=== PATIENT | female | born 1965 | race Caucasian/White ===

== ENCOUNTER 2018-01-11 13:41 | Emergency (ER) | payer OTHER ==
[~2018-01-11] VITALS: Ht 152.4 cm; Wt 63.6 kg
[~2018-01-11 13:41] MED LIST: ASPI-556 PO; LISI-661 PO; METF-960 PO
[2018-01-11 14:03] LABS: GLUCOSE,POINT OF CARE 384 MG/DL (70-110)
[2018-01-11] MEDS ORDERED: GLIM4 PO (14:04)
[2018-01-11] MEDS ORDERED: PENI500T2 PO (14:04)
[2018-01-11] MEDS ORDERED: PROZ10 PO (14:04)
[2018-01-11] MEDS ORDERED: SIMV40TA5 PO (14:04)
[2018-01-11] MEDS ORDERED: D-ME473S53 PO (14:04)
[2018-01-11 15:25] LABS: BASOPHILS % (AUTO) 1.1 % (0.0-2.0); EOSINOPHILS % (AUTO) 2.8 % (1.0-6.0); HEMATOCRIT 37.6 % (36-46); HEMOGLOBIN 12.7 g/dL (12.0-16.0); LYMPHOCYTES # (AUTO) 2.6 K/uL (1.0-4.8); LYMPHOCYTES % (AUTO) 38.2 % (22.0-44.0); MEAN CORPUSCULAR HEMOGLOBIN 31.5 pg (26.0-34.0); MEAN CORPUSCULAR HGB CONC 33.8 G/dL (31.0-37.0); MEAN CORPUSCULAR VOLUME 93 fL (80-100); MONOCYTES # (AUTO) 0.5 K/uL (0.1-1.0); MONOCYTES % (AUTO) 6.9 % (2.0-9.0); NEUTROPHILS # (AUTO) 3.5 K/uL (1.8-7.7); PLATELET COUNT (AUTO) 338 K/uL (150-450); RED BLOOD CELL COUNT(AUTO) 4.03 MIL/uL (4.00-5.20); RED CELL DISTRIBUTION WIDTH 12.3 % (11.5-14.5)
[2018-01-11] MEDS: MethylPREDNISolone SOD SUCC 125 MG/2 ML VIAL IVP ONE (15:36)
[2018-01-11 15:50] LABS: ANION GAP 8 mmol/L (8-16); CALCIUM, TOTAL 9.5 mg/dL (8.8-10.5); CARBON DIOXIDE 29 mmol/L (22-29); CHLORIDE 100 mmol/L (98-107); CREATININE 0.96 mg/dL (0.60-1.30); GLOMERULAR FILTR. RATE CALC > 60 mL/min (>60); GLUCOSE,RANDOM 287 mg/dL (70-110); POTASSIUM 4.1 mmol/L (3.5-5.1); SODIUM SERUM 137 mmol/L (136-145); UREA NITROGEN, BLOOD 19 mg/dL (7-18)
[2018-01-11 15:55] LABS: ALANINE AMINOTRANSFERASE 23 U/L (12-78); ALKALINE PHOSPHATASE 151 U/L (46-116); ASPARTATE AMINOTRANSFERASE 14 U/L (15-37); BILIRUBIN,TOTAL 0.3 mg/dL (0.1-1.0); TOTAL PROTEIN, SERUM 7.2 g/dL (6.4-8.2)
[2018-01-11 16:03] VITALS: BP 157/100
[2018-01-11] MEDS: ALBUTEROL SULFATE 2.5 MG/0.5 ML NEB SOLUTION NEB ONE (16:04)
[2018-01-11] MEDS: IPRATROPIUM BROMIDE 0.5 MG/2.5 ML NEB SOLUTION NEB ONE (16:04)
== END 2018-01-11 16:46 | disposition home or self-care (01) ==
LOC: EMS 13:41
DX: J44.1 Chronic obstructive pulmonary disease with (acute) exacerbation (principal); F17.210 Nicotine dependence, cigarettes, uncomplicated; E11.9 Type 2 diabetes mellitus without complications; I10 Essential (primary) hypertension; Z79.82 Long term (current) use of aspirin; Z79.899 Other long term (current) drug therapy; Z79.84 Long term (current) use of oral hypoglycemic drugs
CPT/HCPCS: 36415; 71046; 80053; 82962; 84484; 85025; 93005; 94640; 96374; 99285; 99406; J2930

== ENCOUNTER 2018-01-24 21:57 | Emergency (ER) | payer OTHER ==
[~2018-01-24] VITALS: Ht 152.4 cm; Wt 61.4 kg
[~2018-01-24 21:57] MED LIST changes: +D-ME473S53 PO; +GLIM4 PO; +PENI500T2 PO; +PROZ10 PO; +SIMV40TA5 PO
[2018-01-24 22:19] LABS: GLUCOSE,POINT OF CARE 421 MG/DL (70-110)
[2018-01-24 22:50] LABS: BASOPHILS % (AUTO) 1.3 % (0.0-2.0); EOSINOPHILS % (AUTO) 3.5 % (1.0-6.0); HEMATOCRIT 36.8 % (36-46); HEMOGLOBIN 12.5 g/dL (12.0-16.0); LYMPHOCYTES # (AUTO) 1.7 K/uL (1.0-4.8); LYMPHOCYTES % (AUTO) 22.2 % (22.0-44.0); MEAN CORPUSCULAR HEMOGLOBIN 31.5 pg (26.0-34.0); MEAN CORPUSCULAR VOLUME 93 fL (80-100); MONOCYTES # (AUTO) 0.4 K/uL (0.1-1.0); MONOCYTES % (AUTO) 4.7 % (2.0-9.0); NEUTROPHILS # (AUTO) 5.3 K/uL (1.8-7.7); NEUTROPHILS % (AUTO) 68.3 % (40.0-70.0); PLATELET COUNT (AUTO) 307 K/uL (150-450); RED BLOOD CELL COUNT(AUTO) 3.98 MIL/uL (4.00-5.20); RED CELL DISTRIBUTION WIDTH 12.5 % (11.5-14.5)
[2018-01-24] MEDS ORDERED: IPRATROPIUM BROMIDE 0.5 MG/2.5 ML NEB SOLUTION NEB ONE (23:00)
[2018-01-24] MEDS ORDERED: ALBUTEROL SULFATE 2.5 MG/0.5 ML NEB SOLUTION NEB ONE (23:00)
[2018-01-24] MEDS ORDERED: SODIUM CHLORIDE 0.9% 1,000 ML IV ONE (23:00)
[2018-01-24 23:06] LABS: ALBUMIN 3.2 g/dL (3.4-5.0); BILIRUBIN,TOTAL 0.2 mg/dL (0.1-1.0); CALCIUM, TOTAL 8.1 mg/dL (8.8-10.5); CREATININE 1.18 mg/dL (0.60-1.30); POTASSIUM 3.9 mmol/L (3.5-5.1)
[2018-01-25 00:10] VITALS: BP 125/105
[2018-01-25] MEDS ORDERED: BENZONATATE 100 MG CAPSULE PO ONE (00:15)
== END 2018-01-25 00:26 | disposition home or self-care (01) ==
LOC: EMS 21:58
DX: J40 Bronchitis, not specified as acute or chronic (principal); E11.9 Type 2 diabetes mellitus without complications; I10 Essential (primary) hypertension; Z79.82 Long term (current) use of aspirin; Z79.899 Other long term (current) drug therapy; Z79.84 Long term (current) use of oral hypoglycemic drugs
CPT/HCPCS: 36415; 71045; 80053; 82948; 82962; 83880; 84484; 85025; 93005; 94640; 99285; J7030

== ENCOUNTER 2018-06-12 14:27 | Emergency (ER) | payer OTHER ==
[~2018-06-12] VITALS: Ht 152.4 cm; Wt 59.1 kg
[~2018-06-12 14:27] MED LIST changes: -D-ME473S53 PO; -PENI500T2 PO; -PROZ10 PO
[2018-06-12] MEDS ORDERED: FLUO-191 PO (14:40)
[2018-06-12 14:49] LABS: GLUCOSE,POINT OF CARE 580 MG/DL (70-110)
[2018-06-12] MEDS ORDERED: LIDOCAINE 1% 10 ML VIAL INJ ONE (15:00)
[2018-06-12] MEDS ORDERED: POVIDONE-IODINE 10% 15 ML SOLUTION UD TP ONE (15:00)
[2018-06-12] MEDS ORDERED: ACETAMINOPHEN 500 MG TABLET PO ONE (15:00)
[2018-06-12] MEDS ORDERED: INSULIN REGULAR, HUMAN 100 UNITS/ML SQ ONE (15:00)
[2018-06-12] MEDS ORDERED: CEPHALEXIN MONOHYDRATE 500 MG CAPSULE PO ONE (15:45)
[2018-06-12] MEDS ORDERED: SULFAMETHOX/TRIMETH DS 800-160 MG/TABLET PO ONE (15:45)
[2018-06-12 16:55] LABS: GLUCOSE,POINT OF CARE 482 MG/DL (70-110)
[2018-06-12 16:58] VITALS: BP 136/72
== END 2018-06-12 17:04 | disposition home or self-care (01) ==
LOC: EMS 14:27
DX: L02.11 Cutaneous abscess of neck (principal); L03.221 Cellulitis of neck; E11.9 Type 2 diabetes mellitus without complications; I10 Essential (primary) hypertension; Z79.84 Long term (current) use of oral hypoglycemic drugs; Z79.82 Long term (current) use of aspirin; Z79.899 Other long term (current) drug therapy
CPT/HCPCS: 10160; 82962; 96372; 99284; J1815; J3490

== ENCOUNTER 2018-07-27 01:34 | Emergency (ER) | payer OTHER ==
[~2018-07-27] VITALS: Ht 152.4 cm; Wt 59.1 kg
[~2018-07-27 01:34] MED LIST changes: +FLUO-191 PO
[2018-07-27 01:49] LABS: GLUCOSE,POINT OF CARE 464 MG/DL (70-110)
[2018-07-27] MEDS ORDERED: IPRATROPIUM BROMIDE 0.5 MG/2.5 ML NEB SOLUTION NEB ONE (02:30)
[2018-07-27] MEDS ORDERED: INSULIN REGULAR, HUMAN 100 UNITS/ML IVP ONE (02:30)
[2018-07-27] MEDS ORDERED: ALBUTEROL SULFATE 2.5 MG/0.5 ML NEB SOLUTION NEB ONE (02:30)
[2018-07-27 03:45] LABS: GLUCOSE,POINT OF CARE 275 MG/DL (70-110)
[2018-07-27 03:52] VITALS: BP 138/76
== END 2018-07-27 03:54 | disposition home or self-care (01) ==
LOC: EMS 01:37
DX: J06.9 Acute upper respiratory infection, unspecified (principal); E11.65 Type 2 diabetes mellitus with hyperglycemia; J45.909 Unspecified asthma, uncomplicated; F32.9 Major depressive disorder, single episode, unspecified; I10 Essential (primary) hypertension; E78.00 Pure hypercholesterolemia, unspecified; F17.210 Nicotine dependence, cigarettes, uncomplicated; Z79.82 Long term (current) use of aspirin; Z79.899 Other long term (current) drug therapy; Z79.84 Long term (current) use of oral hypoglycemic drugs
CPT/HCPCS: 82962; 87430; 94640; 96374; 99283; J1815

== ENCOUNTER 2021-02-04 16:30 | Emergency (ER) | payer OTHER ==
[~2021-02-04] VITALS: Ht 152.4 cm; Wt 61.4 kg
[~2021-02-04 16:30] MED LIST changes: -LISI-661 PO; +LISI-893 PO; +METF-1211 PO; -METF-960 PO; +SIMV-46 PO; -SIMV40TA5 PO
[2021-02-04] MEDS ORDERED: SODIUM CHLORIDE 0.9% 1,000 ML IV ONE (17:15)
[2021-02-04] MEDS ORDERED: INSULIN REGULAR, HUMAN 100 UNITS/ML IVP ONE (17:15)
[2021-02-04] MEDS ORDERED: FLUCONAZOLE 150 MG TABLET PO ONE (17:15)
[2021-02-04 17:47] VITALS: BP 145/81
[2021-02-04 17:55] LABS: CALCIUM, TOTAL 8.8 mg/dL (8.8-10.5); CREATININE 1.73 mg/dL (0.60-1.30)
[2021-02-04 19:26] LABS: GLUCOSE,POINT OF CARE 208 MG/DL (70-110)
== END 2021-02-04 18:57 | disposition home or self-care (01) ==
LOC: EMS 16:33
DX: E11.65 Type 2 diabetes mellitus with hyperglycemia (principal); I10 Essential (primary) hypertension; B37.3 Candidiasis of vulva and vagina; E78.00 Pure hypercholesterolemia, unspecified; Z79.899 Other long term (current) drug therapy; Z79.82 Long term (current) use of aspirin
CPT/HCPCS: 36415; 80048; 82962; 96361; 96374; 99283; J1815; J7030

== ENCOUNTER 2021-03-17 10:05 | Emergency (ER) | payer OTHER ==
[~2021-03-17] VITALS: Ht 152.4 cm; Wt 61.4 kg
[2021-03-17 10:53] LABS: BASOPHILS % (AUTO) 0.9 % (0.0-2.0); EOSINOPHILS % (AUTO) 1.4 % (1.0-6.0); HEMATOCRIT 40.2 % (36-46); HEMOGLOBIN 13.7 g/dL (12.0-16.0); LYMPHOCYTES # (AUTO) 1.8 K/uL (1.0-4.8); LYMPHOCYTES % (AUTO) 24.1 % (22.0-44.0); MEAN CORPUSCULAR HEMOGLOBIN 30.2 pg (26.0-34.0); MEAN CORPUSCULAR VOLUME 89 fL (80-100); MONOCYTES # (AUTO) 0.3 K/uL (0.1-1.0); MONOCYTES % (AUTO) 4.4 % (2.0-9.0); NEUTROPHILS # (AUTO) 5.2 K/uL (1.8-7.7); NEUTROPHILS % (AUTO) 69.2 % (40.0-70.0); PLATELET COUNT (AUTO) 330 K/uL (150-450); RED BLOOD CELL COUNT(AUTO) 4.53 MIL/uL (4.00-5.20); RED CELL DISTRIBUTION WIDTH 12.9 % (11.5-14.5)
[2021-03-17 11:18] LABS: ALANINE AMINOTRANSFERASE 28 U/L (12-78); ALBUMIN 2.8 g/dL (3.4-5.0); ALKALINE PHOSPHATASE 151 U/L (46-116); ANION GAP 6 mmol/L (8-16); ASPARTATE AMINOTRANSFERASE 19 U/L (15-37); BILIRUBIN,TOTAL 0.5 mg/dL (0.1-1.0); CALCIUM, TOTAL 9.4 mg/dL (8.8-10.5); CARBON DIOXIDE 31 mmol/L (22-29); CHLORIDE 96 mmol/L (98-107); CREATININE 1.34 mg/dL (0.60-1.30); GLOMERULAR FILTR. RATE CALC 41 mL/min (>60); HCG,QUANTITATIVE 6 mIU/mL (0-6); LIPASE 95 U/L (73-393); PHOSPHORUS 3.7 mg/dL (2.5-4.9); POTASSIUM 4.4 mmol/L (3.5-5.1); SODIUM SERUM 133 mmol/L (136-145); TOTAL PROTEIN, SERUM 7.8 g/dL (6.4-8.2); UREA NITROGEN, BLOOD 13 mg/dL (7-18)
[2021-03-17 11:23] LABS: GLUCOSE,RANDOM 443 mg/dL (70-110)
[2021-03-17 11:55] LABS: ACETONE,BLOOD NEGATIVE (NEGATIVE)
[2021-03-17 14:12] LABS: APPEARANCE,URINE CLEAR (CLEAR); BILIRUBIN,URINE NEGATIVE (NEGATIVE); GLUCOSE, URINE (UA) >=1000 mg/dL (NEGATIVE); KETONES,URINE TRACE mg/dL (NEGATIVE); LEUKOCYTE ESTERASE ,URINE TRACE (NEGATIVE); NITRATE,URINE NEGATIVE (NEGATIVE); OCCULT BLOOD,URINE SMALL (NEGATIVE); PROTEIN,URINE SEE CONFIRM (NEGATIVE); UROBILINOGEN,URINE 0.2 mg/dL (<=1.0)
[2021-03-17 14:26] LABS: SULFOSALICYLIC ACID,URINE 4+ (Negative)
[2021-03-17 14:27] LABS: BACTERIA,URINE Many /HPF (None Seen); RBC,URINE 0-2 /HPF (0-2); SQUAMOUS EPITHELIAL CELL,UR Few /LPF (None Seen); WBC,URINE 26-50 /HPF (0-5)
[2021-03-17] MEDS ORDERED: SODIUM CHLORIDE 0.9% 1,000 ML IV ONE (15:00)
[2021-03-17] MEDS ORDERED: CEPH500C3 PO (15:06)
[2021-03-17] MEDS ORDERED: FLUCONAZOLE 150 MG TABLET PO ONE (15:15)
[2021-03-17] MEDS ORDERED: CEPHALEXIN MONOHYDRATE 500 MG CAPSULE PO ONE (15:15)
[2021-03-17 23:03] VITALS: BP 157/96
== END 2021-03-17 18:00 | disposition left against medical advice (07) ==
LOC: EMS 10:10
DX: B37.3 Candidiasis of vulva and vagina (principal); N39.0 Urinary tract infection, site not specified; I10 Essential (primary) hypertension; E11.9 Type 2 diabetes mellitus without complications; Z79.84 Long term (current) use of oral hypoglycemic drugs; Z79.899 Other long term (current) drug therapy
CPT/HCPCS: 36415; 80053; 81001; 82009; 82962; 83690; 83735; 84100; 84702; 85025; 87086; 96360; 99283; J7030; 81002

== ENCOUNTER 2022-07-15 06:17 | Inpatient (IN) | payer OTHER ==
[~2022-07-15] VITALS: Ht 152.4 cm; Wt 75.0 kg
[~2022-07-15 06:17] MED LIST changes: +CEPH-558 PO; +FLUO-177 PO; -FLUO-191 PO
[2022-07-15] MEDS ORDERED: DULA3PEN SQ (06:26)
[2022-07-15] MEDS ORDERED: SERT-158 PO (06:26)
[2022-07-15] MEDS ORDERED: AMLO-258 PO (06:29)
[2022-07-15] MEDS ORDERED: GLIM4 PO (06:29)
[2022-07-15] MEDS ORDERED: FURO40 PO (06:29)
[2022-07-15] MEDS ORDERED: ATOR40TA28 PO (06:29)
[2022-07-15] MEDS ORDERED: FINE10TA PO (06:29)
[2022-07-15] MEDS ORDERED: CHL25 PO (06:29)
[2022-07-15] MEDS ORDERED: FUROSEMIDE 40 MG/4 ML VIAL IVP ONE (07:00)
[2022-07-15 07:18] LABS: EOSINOPHILS % (AUTO) 1.3 % (1.0-6.0); HEMATOCRIT 24.1 % (36-46); HEMOGLOBIN 8.1 g/dL (12.0-16.0); LYMPHOCYTES # (AUTO) 1.5 K/uL (1.0-4.8); LYMPHOCYTES % (AUTO) 17.8 % (22.0-44.0); MEAN CORPUSCULAR HEMOGLOBIN 30.5 pg (26.0-34.0); MEAN CORPUSCULAR HGB CONC 33.6 G/dL (31.0-37.0); MEAN CORPUSCULAR VOLUME 91 fL (80-100); MONOCYTES # (AUTO) 0.5 K/uL (0.1-1.0); MONOCYTES % (AUTO) 6.3 % (2.0-9.0); NEUTROPHILS % (AUTO) 73.6 % (40.0-70.0); PLATELET COUNT (AUTO) 450 K/uL (150-450); RED BLOOD CELL COUNT(AUTO) 2.66 MIL/uL (4.00-5.20); RED CELL DISTRIBUTION WIDTH 13.4 % (11.5-14.5)
[2022-07-15] MEDS: OXYGEN THERAPY IH SCH ×2 (07:25→20:00)
[2022-07-15 07:38] LABS: COVID AG,FIA SOURCE NASOPHARYNGEAL
[2022-07-15 07:40] LABS: LACTIC ACID 2.1 mmol/L (0.4-2.0)
[2022-07-15 07:41] LABS: B-TYPE NATRIURETIC PEPTIDE 224 pg/mL (0-100)
[2022-07-15 08:04] LABS: ANION GAP 18 mmol/L (8-16); CALCIUM, TOTAL 8.6 mg/dL (8.8-10.5); CARBON DIOXIDE 15 mmol/L (22-29); CHLORIDE 102 mmol/L (98-107); CREATININE 4.11 mg/dL (0.60-1.30); GLOMERULAR FILTR. RATE CALC 11 mL/min (>60); GLUCOSE,RANDOM 263 mg/dL (70-110); POTASSIUM 5.1 mmol/L (3.5-5.1); SODIUM SERUM 135 mmol/L (136-145)
[2022-07-15 08:10] LABS: ALANINE AMINOTRANSFERASE 14 U/L (12-78); ALBUMIN 2.8 g/dL (3.4-5.0); ALKALINE PHOSPHATASE 144 U/L (46-116); ASPARTATE AMINOTRANSFERASE 15 U/L (15-37); BILIRUBIN,TOTAL 0.3 mg/dL (0.1-1.0); LIPASE 151 U/L (73-393); TOTAL PROTEIN, SERUM 6.9 g/dL (6.4-8.2)
[2022-07-15 08:12] LABS: INFLUENZA TYPE A NEGATIVE FOR TYPE A (NEGATIVE); INFLUENZA TYPE B NEGATIVE FOR TYPE B (NEGATIVE)
[2022-07-15] MEDS ORDERED: EPOETIN ALFA 10,000 UNITS/ML VIAL SQ ONE ×2 (09:15→13:00)
[2022-07-15 10:10] LABS: APPEARANCE,URINE CLEAR (CLEAR); BILIRUBIN,URINE NEGATIVE (NEGATIVE); GLUCOSE, URINE (UA) 150-200 mg/dL (NEGATIVE); KETONES,URINE NEGATIVE (NEGATIVE); LEUKOCYTE ESTERASE ,URINE NEGATIVE (NEGATIVE); NITRATE,URINE NEGATIVE (NEGATIVE); OCCULT BLOOD,URINE TRACE (NEGATIVE); PH,URINE 6.5 (5.0-8.0); PROTEIN,URINE 100-200,SEE CONFIRM mg/dL (NEGATIVE); SPECIFIC GRAVITIY, URINE 1.009 (1.003-1.030); UROBILINOGEN,URINE <=1.0 mg/dL (<=1.0)
[2022-07-15 10:19] LABS: BACTERIA,URINE None Seen /HPF (None Seen); RBC,URINE 0-2 /HPF (0-2); SQUAMOUS EPITHELIAL CELL,UR Rare /LPF (None Seen); SULFOSALICYLIC ACID,URINE 2+ (Negative); WBC,URINE 0-2 /HPF (0-5)
[2022-07-15] MEDS ORDERED: MAGNESIUM HYDROXIDE SUSPENSION 30 ML UDCUP PO PRN (14:30)
[2022-07-15] MEDS ORDERED: DEXTROSE 50%-WATER 25 GM/50 ML SYRINGE IVP PRN (14:30)
[2022-07-15] MEDS ORDERED: ACETAMINOPHEN 325 MG TABLET PO PRN (14:30)
[2022-07-15] MEDS ORDERED: BISACODYL 10 MG RECTAL RECTAL SUPPOSITORY PR PRN (14:30)
[2022-07-15] MEDS ORDERED: ONDANSETRON HCL 4 MG/2 ML VIAL IVP PRN (14:30)
[2022-07-15 14:37] VITALS: BP 148/78
[2022-07-15] MEDS: CITRIC ACID/SODIUM CITRATE 30 ML SOLUTION UDCUP PO SCH ×2 (16:26→20:01)
[2022-07-15] MEDS: HEPARIN SODIUM,PORCINE 5,000 UNITS/ML VIAL SQ SCH (16:29)
[2022-07-15] MEDS: INSULIN LISPRO 100 UNITS/ML SQ PRN ×2 (16:33→20:03)
[2022-07-15] MEDS: LABETALOL HCL 100 MG TABLET PO SCH (20:01)
[2022-07-15] MEDS: DOCUSATE SODIUM 100 MG CAPSULE PO SCH (20:01)
[2022-07-15] MEDS: FUROSEMIDE 40 MG/4 ML VIAL IVP SCH (20:06)
[2022-07-15 20:17] LABS: CREATININE,URINE RANDOM 47.9 mg/dL (30.0-125.0); PROTEIN,URINE RANDOM 353 mg/dL (0-11.9); SODIUM,URINE RANDOM 89 mmol/l (20-110); UREA NITROGEN,URINE RANDOM 311 mg/dL (350-1000)
[2022-07-15 20:37] LABS: APPEARANCE,URINE CLEAR (CLEAR); BILIRUBIN,URINE NEGATIVE (NEGATIVE); GLUCOSE, URINE (UA) 150-200 mg/dL (NEGATIVE); KETONES,URINE NEGATIVE (NEGATIVE); LEUKOCYTE ESTERASE ,URINE NEGATIVE (NEGATIVE); NITRATE,URINE NEGATIVE (NEGATIVE); OCCULT BLOOD,URINE SMALL (NEGATIVE); PH,URINE 6.5 (5.0-8.0); PROTEIN,URINE 300-600,SEE CONFIRM mg/dL (NEGATIVE); UROBILINOGEN,URINE <=1.0 mg/dL (<=1.0)
[2022-07-15 21:06] LABS: WBC,URINE 0-2 /HPF (0-5)
[2022-07-15 21:07] LABS: BACTERIA,URINE None Seen /HPF (None Seen); RBC,URINE 0-2 /HPF (0-2)
[2022-07-16] MEDS: HEPARIN SODIUM,PORCINE 5,000 UNITS/ML VIAL SQ SCH ×3 (00:22→18:38)
[2022-07-16 00:30] VITALS: BP 137/76
[2022-07-16 02:16] LABS: GLUCOMETER DEV NAME(LOC) 5S.1B; GLUCOSE,POINT OF CARE 172 MG/DL (70-110)
[2022-07-16 02:16] LABS: GLUCOMETER DEV NAME(LOC) 5S.1B; GLUCOSE,POINT OF CARE 155 MG/DL (70-110)
[2022-07-16 03:48] VITALS: BP 149/77
[2022-07-16 07:32] LABS: BASOPHILS % (AUTO) 1.3 % (0.0-2.0); EOSINOPHILS % (AUTO) 3.4 % (1.0-6.0); HEMATOCRIT 23.2 % (36-46); HEMOGLOBIN 7.7 g/dL (12.0-16.0); LYMPHOCYTES % (AUTO) 29.3 % (22.0-44.0); MEAN CORPUSCULAR HEMOGLOBIN 30.3 pg (26.0-34.0); MEAN CORPUSCULAR HGB CONC 33.3 G/dL (31.0-37.0); MEAN CORPUSCULAR VOLUME 91 fL (80-100); MONOCYTES # (AUTO) 0.5 K/uL (0.1-1.0); MONOCYTES % (AUTO) 6.5 % (2.0-9.0); NEUTROPHILS # (AUTO) 4.1 K/uL (1.8-7.7); NEUTROPHILS % (AUTO) 59.5 % (40.0-70.0); PLATELET COUNT (AUTO) 412 K/uL (150-450); RED BLOOD CELL COUNT(AUTO) 2.54 MIL/uL (4.00-5.20); RED CELL DISTRIBUTION WIDTH 13.6 % (11.5-14.5)
[2022-07-16 07:41] LABS: GLUCOMETER DEV NAME(LOC) 5S.2C; GLUCOSE,POINT OF CARE 164 MG/DL (70-110)
[2022-07-16 07:49] LABS: CALCIUM, TOTAL 8.3 mg/dL (8.8-10.5); CREATININE 4.18 mg/dL (0.60-1.30); POTASSIUM 5.2 mmol/L (3.5-5.1)
[2022-07-16 07:50] LABS: INR 0.9 (0.9-1.1); PROTHROMBIN TIME 9.8 SEC (9.4-11.6)
[2022-07-16 07:57] LABS: % IRON SATURATION 9.8 % (22-44)
[2022-07-16 08:16] VITALS: BP 127/69
[2022-07-16] MEDS: HYDROCODONE/ACETAMINOPHEN 5-325 MG TABLET PO PRN ×2 (08:26→18:37)
[2022-07-16] MEDS: DOCUSATE SODIUM 100 MG CAPSULE PO SCH ×2 (08:28→20:43)
[2022-07-16] MEDS: PANTOPRAZOLE SODIUM 40 MG DR TABLET PO SCH (08:28)
[2022-07-16] MEDS: OXYGEN THERAPY IH SCH ×3 (08:28→20:42)
[2022-07-16] MEDS: LABETALOL HCL 100 MG TABLET PO SCH ×2 (08:28→20:43)
[2022-07-16] MEDS: FUROSEMIDE 40 MG/4 ML VIAL IVP SCH ×2 (08:28→20:40)
[2022-07-16] MEDS: AmLODIPine BESYLATE 10 MG TABLET PO SCH (08:28)
[2022-07-16] MEDS: CITRIC ACID/SODIUM CITRATE 30 ML SOLUTION UDCUP PO SCH ×2 (08:28→20:42)
[2022-07-16] MEDS: ATORVASTATIN CALCIUM 40 MG TABLET PO SCH (08:28)
[2022-07-16] MEDS ORDERED: HEPARIN SODIUM,PORCINE 1,000 UNITS/ML 10 ML VIAL ONE (09:00)
[2022-07-16] MEDS ORDERED: 0.9% SODIUM CHLORIDE 10 ML VIAL ONE (09:00)
[2022-07-16] MEDS ORDERED: PROPOFOL 1% ISO-OSM 1000 MG/100 ML BOTTLE ONE (09:00)
[2022-07-16] MEDS ORDERED: ETHYL ALCOHOL 62% ANTISEPTIC NASAL SANITIZER 0.6 ML AMPUL NASAL ONE (10:00)
[2022-07-16] MEDS ORDERED: SODIUM CHLORIDE 0.9% 1,000 ML IV ONE (10:00)
[2022-07-16] MEDS ORDERED: SODIUM CHLORIDE 0.9% 1,000 ML ONE (10:26)
[2022-07-16 11:04] VITALS: BP 129/72
[2022-07-16 11:24] VITALS: BP 116/53
[2022-07-16] MEDS ORDERED: MIDAZOLAM HCL 2 MG/2 ML VIAL IVP ONE (12:00)
[2022-07-16] MEDS ORDERED: FentaNYL CITRATE PF 100 MCG/2 ML VIAL IVP ONE (12:00)
[2022-07-16] MEDS ORDERED: VANCOMYCIN HCL 1 GM/VIAL ONE (12:46)
[2022-07-16] MEDS ORDERED: LIDOCAINE/PF 1% 30 ML VIAL ONE (12:46)
[2022-07-16] MEDS ORDERED: HEPARIN SODIUM,PORCINE 5,000 UNITS/ML VIAL ONE (12:46)
[2022-07-16] MEDS ORDERED: FentaNYL CITRATE PF 100 MCG/2 ML VIAL IVP PRN (13:30)
[2022-07-16] MEDS ORDERED: HYDROmorphone HCL 2 MG/ML SYRINGE IVP PRN (13:30)
[2022-07-16] MEDS ORDERED: MEPERIDINE-PF 25 MG/ML VIAL IVP PRN (13:30)
[2022-07-16] MEDS ORDERED: ALBUTEROL SULFATE 2.5 MG/0.5 ML NEB SOLUTION NEB ONE ×2 (14:11→14:30)
[2022-07-16] MEDS ORDERED: FUROSEMIDE 40 MG/4 ML VIAL ONE (14:11)
[2022-07-16] MEDS ORDERED: FUROSEMIDE 40 MG/4 ML VIAL IVP ONE (14:15)
[2022-07-16] MEDS: INSULIN LISPRO 100 UNITS/ML SQ PRN (20:38)
[2022-07-16] MEDS: ZOLPIDEM TARTRATE 5 MG TABLET PO PRN (20:42)
[2022-07-16 20:44] VITALS: BP 132/59
[2022-07-16 21:26] LABS: GLUCOMETER DEV NAME(LOC) 5S.1B; GLUCOSE,POINT OF CARE 203 MG/DL (70-110)
[2022-07-16 21:26] LABS: GLUCOMETER DEV NAME(LOC) 5S.2C; GLUCOSE,POINT OF CARE 209 MG/DL (70-110)
[2022-07-17] MEDS: HEPARIN SODIUM,PORCINE 5,000 UNITS/ML VIAL SQ SCH ×3 (01:05→16:24)
[2022-07-17 01:25] VITALS: BP 146/68
[2022-07-17 04:57] VITALS: BP 147/73
[2022-07-17] MEDS: INSULIN LISPRO 100 UNITS/ML SQ PRN ×3 (05:47→20:15)
[2022-07-17 07:06] LABS: BASOPHILS % (AUTO) 0.8 % (0.0-2.0); EOSINOPHILS % (AUTO) 2.7 % (1.0-6.0); HEMATOCRIT 22.8 % (36-46); HEMOGLOBIN 7.7 g/dL (12.0-16.0); LYMPHOCYTES # (AUTO) 1.7 K/uL (1.0-4.8); LYMPHOCYTES % (AUTO) 19.9 % (22.0-44.0); MEAN CORPUSCULAR HEMOGLOBIN 30.5 pg (26.0-34.0); MEAN CORPUSCULAR HGB CONC 33.7 G/dL (31.0-37.0); MEAN CORPUSCULAR VOLUME 91 fL (80-100); MONOCYTES # (AUTO) 0.5 K/uL (0.1-1.0); MONOCYTES % (AUTO) 5.9 % (2.0-9.0); NEUTROPHILS # (AUTO) 5.9 K/uL (1.8-7.7); NEUTROPHILS % (AUTO) 70.7 % (40.0-70.0); PLATELET COUNT (AUTO) 443 K/uL (150-450); RED BLOOD CELL COUNT(AUTO) 2.52 MIL/uL (4.00-5.20); RED CELL DISTRIBUTION WIDTH 13.4 % (11.5-14.5)
[2022-07-17 08:19] VITALS: BP 145/70
[2022-07-17 08:31] LABS: GLUCOMETER DEV NAME(LOC) 5S.2C; GLUCOSE,POINT OF CARE 236 MG/DL (70-110)
[2022-07-17] MEDS: AmLODIPine BESYLATE 10 MG TABLET PO SCH (08:48)
[2022-07-17] MEDS: PANTOPRAZOLE SODIUM 40 MG DR TABLET PO SCH (08:48)
[2022-07-17] MEDS: LABETALOL HCL 100 MG TABLET PO SCH ×2 (08:48→21:58)
[2022-07-17] MEDS: DOCUSATE SODIUM 100 MG CAPSULE PO SCH ×2 (08:48→21:00)
[2022-07-17] MEDS: SODIUM ZIRCONIUM CYCLOSILICATE 5 GM POWDER PACKET PO SCH (08:48)
[2022-07-17] MEDS: ATORVASTATIN CALCIUM 40 MG TABLET PO SCH (08:48)
[2022-07-17] MEDS: CITRIC ACID/SODIUM CITRATE 30 ML SOLUTION UDCUP PO SCH ×2 (08:48→20:16)
[2022-07-17] MEDS: FUROSEMIDE 40 MG/4 ML VIAL IVP SCH ×2 (08:49→20:16)
[2022-07-17] MEDS: MORPHINE SULFATE 2 MG/ML SYRINGE IVP PRN ×3 (09:06→21:58)
[2022-07-17] MEDS: OXYGEN THERAPY IH SCH ×3 (09:28→20:00)
[2022-07-17 11:23] VITALS: BP 120/56
[2022-07-17 12:31] LABS: GLUCOMETER DEV NAME(LOC) 5S.1B; GLUCOSE,POINT OF CARE 318 MG/DL (70-110)
[2022-07-17 15:09] VITALS: BP 141/65
[2022-07-17 18:17] LABS: GLUCOMETER DEV NAME(LOC) 5S.1B; GLUCOSE,POINT OF CARE 119 MG/DL (70-110)
[2022-07-17 20:52] VITALS: BP 148/66
[2022-07-17] MEDS: ZOLPIDEM TARTRATE 5 MG TABLET PO PRN (21:58)
[2022-07-17 22:31] LABS: GLUCOMETER DEV NAME(LOC) 5S.2C; GLUCOSE,POINT OF CARE 210 MG/DL (70-110)
[2022-07-18] VITALS (10 sets, daily range): BP systolic 105–156; BP diastolic 50–74
[2022-07-18] MEDS: HEPARIN SODIUM,PORCINE 5,000 UNITS/ML VIAL SQ SCH ×3 (00:38→16:56)
[2022-07-18] MEDS: INSULIN LISPRO 100 UNITS/ML SQ PRN ×4 (05:47→20:26)
[2022-07-18 05:56] LABS: GLUCOMETER DEV NAME(LOC) 5N.1C; GLUCOSE,POINT OF CARE 253 MG/DL (70-110)
[2022-07-18 06:49] LABS: BASOPHILS % (AUTO) 1.3 % (0.0-2.0); EOSINOPHILS % (AUTO) 2.3 % (1.0-6.0); HEMATOCRIT 21.3 % (36-46); HEMOGLOBIN 7.1 g/dL (12.0-16.0); LYMPHOCYTES # (AUTO) 2.1 K/uL (1.0-4.8); LYMPHOCYTES % (AUTO) 26.6 % (22.0-44.0); MEAN CORPUSCULAR HEMOGLOBIN 30.3 pg (26.0-34.0); MEAN CORPUSCULAR HGB CONC 33.2 G/dL (31.0-37.0); MEAN CORPUSCULAR VOLUME 91 fL (80-100); MONOCYTES # (AUTO) 0.6 K/uL (0.1-1.0); NEUTROPHILS # (AUTO) 4.8 K/uL (1.8-7.7); NEUTROPHILS % (AUTO) 61.8 % (40.0-70.0); PLATELET COUNT (AUTO) 406 K/uL (150-450); RED BLOOD CELL COUNT(AUTO) 2.34 MIL/uL (4.00-5.20); RED CELL DISTRIBUTION WIDTH 13.2 % (11.5-14.5)
[2022-07-18] MEDS: ATORVASTATIN CALCIUM 40 MG TABLET PO SCH (08:43)
[2022-07-18] MEDS: LABETALOL HCL 100 MG TABLET PO SCH ×2 (08:43→20:25)
[2022-07-18] MEDS: FUROSEMIDE 40 MG/4 ML VIAL IVP SCH (08:43)
[2022-07-18] MEDS: AmLODIPine BESYLATE 10 MG TABLET PO SCH (08:43)
[2022-07-18] MEDS: PANTOPRAZOLE SODIUM 40 MG DR TABLET PO SCH (08:43)
[2022-07-18] MEDS: CITRIC ACID/SODIUM CITRATE 30 ML SOLUTION UDCUP PO SCH ×2 (08:44→20:33)
[2022-07-18] MEDS: HYDROCODONE/ACETAMINOPHEN 5-325 MG TABLET PO PRN ×2 (08:54→21:23)
[2022-07-18] MEDS: DOCUSATE SODIUM 100 MG CAPSULE PO SCH ×2 (09:00→20:33)
[2022-07-18] MEDS ORDERED: GABA-529 PO (11:57)
[2022-07-18] MEDS ORDERED: DILT120C78 PO (11:57)
[2022-07-18] MEDS ORDERED: FURO80TA3 PO (11:57)
[2022-07-18] MEDS ORDERED: INSU100I26 SQ (11:57)
[2022-07-18] MEDS ORDERED: POLY510P31 PO (11:57)
[2022-07-18] MEDS ORDERED: ALBU18HF12 IH (11:57)
[2022-07-18] MEDS ORDERED: SODI650T PO (11:57)
[2022-07-18 12:16] LABS: BASOPHILS % (AUTO) 0.5 % (0.0-2.0); EOSINOPHILS % (AUTO) 2.3 % (1.0-6.0); LYMPHOCYTES # (AUTO) 1.9 K/uL (1.0-4.8); LYMPHOCYTES % (AUTO) 25.5 % (22.0-44.0); MEAN CORPUSCULAR HEMOGLOBIN 30.3 pg (26.0-34.0); MEAN CORPUSCULAR HGB CONC 33.2 G/dL (31.0-37.0); MEAN CORPUSCULAR VOLUME 91 fL (80-100); MONOCYTES # (AUTO) 0.5 K/uL (0.1-1.0); MONOCYTES % (AUTO) 7.1 % (2.0-9.0); NEUTROPHILS # (AUTO) 4.7 K/uL (1.8-7.7); NEUTROPHILS % (AUTO) 64.6 % (40.0-70.0); PLATELET COUNT (AUTO) 364 K/uL (150-450); RED BLOOD CELL COUNT(AUTO) 2.21 MIL/uL (4.00-5.20); RED CELL DISTRIBUTION WIDTH 13.5 % (11.5-14.5)
[2022-07-18 12:17] LABS: CALCIUM, TOTAL 8.1 mg/dL (8.8-10.5); CREATININE 4.81 mg/dL (0.60-1.30); POTASSIUM 4.2 mmol/L (3.5-5.1)
[2022-07-18 12:20] LABS: PHOSPHORUS 6.5 mg/dL (2.5-4.9)
[2022-07-18 12:28] LABS: HEMOGLOBIN 6.7 g/dL (12.0-16.0)
[2022-07-18 12:29] LABS: HEMATOCRIT 20.2 % (36-46)
[2022-07-18] MEDS: SODIUM ZIRCONIUM CYCLOSILICATE 5 GM POWDER PACKET PO SCH (13:14)
[2022-07-18] MEDS ORDERED: SODIUM CHLORIDE 0.9% 250 ML IV ONE (17:20)
[2022-07-18] MEDS: OXYGEN THERAPY IH SCH (20:32)
[2022-07-18 20:36] LABS: GLUCOMETER DEV NAME(LOC) 5N.1C; GLUCOSE,POINT OF CARE 254 MG/DL (70-110)
[2022-07-18 20:36] LABS: GLUCOMETER DEV NAME(LOC) 5N.1C; GLUCOSE,POINT OF CARE 167 MG/DL (70-110)
[2022-07-19 00:05] VITALS: BP 137/71
[2022-07-19] MEDS: HEPARIN SODIUM,PORCINE 5,000 UNITS/ML VIAL SQ SCH ×2 (00:27→09:00)
[2022-07-19 01:21] LABS: GLUCOMETER DEV NAME(LOC) 5S.2C; GLUCOSE,POINT OF CARE 261 MG/DL (70-110)
[2022-07-19] MEDS: HYDROCODONE/ACETAMINOPHEN 5-325 MG TABLET PO PRN (01:58)
[2022-07-19 04:43] VITALS: BP 141/61
[2022-07-19] MEDS: INSULIN LISPRO 100 UNITS/ML SQ PRN ×2 (06:03→11:17)
[2022-07-19 06:16] LABS: GLUCOMETER DEV NAME(LOC) 5S.2C; GLUCOSE,POINT OF CARE 187 MG/DL (70-110)
[2022-07-19 06:27] LABS: BASOPHILS % (AUTO) 1.1 % (0.0-2.0); EOSINOPHILS % (AUTO) 4.1 % (1.0-6.0); HEMATOCRIT 24.7 % (36-46); HEMOGLOBIN 8.5 g/dL (12.0-16.0); LYMPHOCYTES # (AUTO) 2.3 K/uL (1.0-4.8); LYMPHOCYTES % (AUTO) 32.1 % (22.0-44.0); MEAN CORPUSCULAR HGB CONC 34.2 G/dL (31.0-37.0); MEAN CORPUSCULAR VOLUME 91 fL (80-100); MONOCYTES # (AUTO) 0.6 K/uL (0.1-1.0); MONOCYTES % (AUTO) 7.8 % (2.0-9.0); NEUTROPHILS # (AUTO) 3.9 K/uL (1.8-7.7); NEUTROPHILS % (AUTO) 54.9 % (40.0-70.0); PLATELET COUNT (AUTO) 383 K/uL (150-450); RED BLOOD CELL COUNT(AUTO) 2.73 MIL/uL (4.00-5.20)
[2022-07-19 06:44] LABS: CALCIUM, TOTAL 8.2 mg/dL (8.8-10.5); CREATININE 4.72 mg/dL (0.60-1.30); POTASSIUM 4.2 mmol/L (3.5-5.1)
[2022-07-19 06:47] LABS: PHOSPHORUS 6.5 mg/dL (2.5-4.9)
[2022-07-19 08:13] VITALS: BP 144/60
[2022-07-19] MEDS ORDERED: FUROSEMIDE 80 MG TABLET PO SCH (09:00)
[2022-07-19] MEDS: LABETALOL HCL 100 MG TABLET PO SCH (09:01)
[2022-07-19] MEDS: PANTOPRAZOLE SODIUM 40 MG DR TABLET PO SCH (09:01)
[2022-07-19] MEDS: ATORVASTATIN CALCIUM 40 MG TABLET PO SCH (09:01)
[2022-07-19] MEDS: AmLODIPine BESYLATE 10 MG TABLET PO SCH (09:01)
[2022-07-19] MEDS: DOCUSATE SODIUM 100 MG CAPSULE PO SCH (09:02)
[2022-07-19] MEDS: CITRIC ACID/SODIUM CITRATE 30 ML SOLUTION UDCUP PO SCH (09:02)
[2022-07-19] MEDS: OXYGEN THERAPY IH SCH (09:10)
[2022-07-19] MEDS ORDERED: SODI5POW3 PO (10:31)
[2022-07-19] MEDS: SODIUM ZIRCONIUM CYCLOSILICATE 5 GM POWDER PACKET PO SCH (11:10)
[2022-07-19 11:39] VITALS: BP 124/60
[2022-07-19 14:56] LABS: GLUCOMETER DEV NAME(LOC) 5N.2C; GLUCOSE,POINT OF CARE 302 MG/DL (70-110)
== END 2022-07-19 14:35 | disposition home health service (06) | DRG 180 ==
LOC: EMS 06:18 → 5S 11:37
PROVIDERS: ADMIT Internal Medicine; ATTEND Internal Medicine
PROC: 03180ZD Bypass Left Brachial Artery to Upper Arm Vein, Open Approach (ICD-10-PCS; principal; 2022-07-16 13:25)
PROC: 30233N1 Transfusion of Nonautologous Red Blood Cells into Peripheral Vein, Percutaneous Approach (ICD-10-PCS; 2022-07-18)
DX: I13.2 Hypertensive heart and chronic kidney disease with heart failure and with stage 5 chronic kidney disease, or end stage renal disease (principal); J96.01 Acute respiratory failure with hypoxia; N17.9 Acute kidney failure, unspecified; D63.1 Anemia in chronic kidney disease; E11.319 Type 2 diabetes mellitus with unspecified diabetic retinopathy without macular edema; E87.20 Acidosis, unspecified; I50.33 Acute on chronic diastolic (congestive) heart failure; N18.5 Chronic kidney disease, stage 5; E11.65 Type 2 diabetes mellitus with hyperglycemia; Z20.822 Contact with and (suspected) exposure to COVID-19; E66.9 Obesity, unspecified; E87.5 Hyperkalemia; I07.1 Rheumatic tricuspid insufficiency; E78.5 Hyperlipidemia, unspecified; M19.90 Unspecified osteoarthritis, unspecified site; E11.40 Type 2 diabetes mellitus with diabetic neuropathy, unspecified; I16.0 Hypertensive urgency; E11.22 Type 2 diabetes mellitus with diabetic chronic kidney disease; Z79.899 Other long term (current) drug therapy; Z79.84 Long term (current) use of oral hypoglycemic drugs; Z98.891 History of uterine scar from previous surgery; Z79.82 Long term (current) use of aspirin; Z68.32 Body mass index [BMI] 32.0-32.9, adult
CPT/HCPCS: 71045; 80048; 80053; 81001; 81002; 82570; 82962; 83540; 83550; 83605; 83690; 83735; 83880; 83970; 84100; 84156; 84300; 84484; 84540; 85025; 85610; 85730; 86850; 86900; 86901; 86923; 87804; 93005; 93306; 93970; 93971; 99291; J0690; J0885; J1644; J1940; J2250; J2270; J2704; J3010; J3370; J3490; J7030; J7050; P9016; Q9967; 36415-L1; 36415-TC; J7613; Z7610

== ENCOUNTER 2024-08-29 02:21 | Emergency (ER) | payer MEDICARE, OTHER ==
[~2024-08-29] VITALS: Ht 152.4 cm; Wt 63.6 kg
[~2024-08-29 02:21] MED LIST changes: +ALBU18HF12 IH; +AMLO-258 PO; -ASPI-556 PO; +ATOR40TA28 PO; -CEPH-558 PO; +FURO80TA3 PO; +FURO80TA4 PO; +GABA-529 PO; -GLIM4 PO; -LISI-893 PO; -METF-1211 PO; +POLY510P31 PO; +SERT-158 PO; -SIMV-46 PO; +SITA25 PO; +SODI5POW3 PO; +SODI650T PO
[2024-08-29 02:28] VITALS: BP 215/90; PULSE 84; RESP 16; TEMP 98.6; O2SAT 96
[2024-08-29 02:51] LABS: GLUCOMETER DEV NAME(LOC) ER.7; GLUCOSE,POINT OF CARE 121 MG/DL (70-110)
== END 2024-08-29 03:30 | disposition left against medical advice (07) ==
LOC: EMS 02:21
DX: R11.2 Nausea with vomiting, unspecified (principal); I11.0 Hypertensive heart disease with heart failure; I50.9 Heart failure, unspecified; E11.9 Type 2 diabetes mellitus without complications; Z98.890 Other specified postprocedural states; Z79.4 Long term (current) use of insulin; Z79.899 Other long term (current) drug therapy; Z99.2 Dependence on renal dialysis; Z76.0 Encounter for issue of repeat prescription
CPT/HCPCS: 82962; 93005; 99282; 99283